=== PATIENT | female | born 1935 | race Caucasian/White ===

== ENCOUNTER → 2016-11-17 | Outpatient (CLI) | payer MEDICARE ==
[~2016-11-17] MED LIST: ASPIR-LOW81 MG; CALCIUM 500 W/V1 TAB; CENTRUM SILVER1 CTB PO; CENTRUM SILVER1 TAB; FORADIL AERO0.012 MG; KEFLEX500 MG PO; NEXIUM40 MG PO; NORVASC2.5 MG PO; NORVASC5 MG; OSTEO-BI-FLEX 21 TAB; QVAR0.08 MG/AC IH; Sinemet Cr 25-11 TAB PO
[2016-11-17 10:30] LABS: BASO # 0.1 10*3/uL (0.0-0.1); BASO % 0.9 % (0.0-1.0); EOS # 0.5 10*3/uL (0.0-0.4); EOS % 5.9 % (1.0-4.0); HEMATOCRIT 42.4 % (37.0-47.0); HEMOGLOBIN 13.4 g/dl (12.0-16.0); LYMPH % 10.7 % (27.0-41.0); MEAN CELL VOLUME 99.1 fl (81.0-99.0); MEAN CORPUSCULAR HGB 31.3 pg (27.0-31.0); MEAN CORPUSCULAR HGB CONC 31.6 g/dl (33.0-37.0); MEAN PLATELET VOLUME 9.4 fl (9.6-12.3); MONO # 0.7 10*3/uL (0.1-1.0); MONO % 7.4 % (3.0-9.0); NEUT # 6.7 10*3/uL (2.3-7.9); NEUT % 74.8 % (47.0-73.0); PLATELET COUNT AUTOMATED 323 10*3/uL (130-400); RED BLOOD COUNT 4.28 10*6/uL (4.10-5.10); RED CELL DISTRI WIDTH 13.3 % (0-14.5)
[2016-11-17 11:00] LABS: ALBUMIN 3.5 gm/dl (3.1-4.5); ALKALINE PHOSPHATASE 93 U/L (45-117); BILIRUBIN, TOTAL 0.6 mg/dl (0.2-1.0); BUN 24 mg/dl (7-24); CARBON DIOXIDE 31 mmol/L (21-32); CHLORIDE 104 mmol/L (98-107); EST GLOM FILT AFRICAN AMERICAN > 60 ml/min; FREE T4 1.09 ng/dl (0.76-1.46); GLUCOSE 81 mg/dL (65-99); POTASSIUM 4.2 mmol/L (3.5-5.1); SGOT/AST 14 IU/L (3-35); SODIUM 141 mmol/L (136-145); TOTAL PROTEIN 7.2 gm/dL (6.4-8.2)
[2016-11-17 11:08] LABS: C-REACTIVE PROTEIN < 0.29 MG/DL (0-0.3); SGPT/ALT < 6 U/L (12-78)
[2016-11-18 13:09] LABS: LYME AB/TOTAL IMMUNOGLOBULINS <0.91 ISR (0.00-0.90)
== END | disposition home or self-care (01) ==
LOC: LAB 10:00
PROVIDERS: Physician Assistant Medical
DX: Z13.21 Encounter for screening for nutritional disorder (principal); R41.3 Other amnesia; M79.1 Myalgia

== ENCOUNTER 2016-12-22 18:54 | Emergency (ER) | payer MEDICARE ==
[~2016-12-22] VITALS: Ht 170.1 cm; Wt 75.3 kg
[2016-12-22 19:13] VITALS: BP 152/82
== END 2016-12-22 23:01 | disposition home or self-care (01) ==
LOC: ED 18:54
DX: S09.90XA Unspecified injury of head, initial encounter (principal); G20 Parkinson's disease; Z79.899 Other long term (current) drug therapy; W10.9XXA Fall (on) (from) unspecified stairs and steps, initial encounter; Y93.89 Activity, other specified; Y92.89 Other specified places as the place of occurrence of the external cause; Y99.8 Other external cause status